=== PATIENT | female | born 1935 | race Caucasian/White ===

== ENCOUNTER 2017-10-04 12:09 | Emergency (ER) | payer MEDICARE, BC ==
[~2017-10-04] VITALS: Ht 162.6 cm; Wt 59.0 kg
--- NOTE | 2017-10-04 12:20 | NUR ---
BBRA FROM HOME C/O SKIN TEAR TO LLE S/P SLIP AND FALL. A/OX 4, BREATHING EVEN AND UNLABORED. NO SOB, NAD, NO TRAUMA. VITALS STABLE, SAFETY AND COMFORT MEAURES IN PLACE. AWAITING MD ORDERS
[2017-10-04] MEDS ORDERED: HYDROCODONE/APAP 5/325MG 1 EACH TABLET ONE (12:53)
[2017-10-04] MEDS ORDERED: ONDANSETRON 4 MG TAB.RAPDIS ONE (12:53)
[2017-10-04] MEDS ORDERED: TDAP [DIPH/PERTUSSIS/TET] 0.5 ML VIAL IM ONE ×2 (12:53→13:00)
[2017-10-04] MEDS ORDERED: HYDROCODONE/APAP 5/325MG 1 EACH TABLET PO ONE (13:00)
[2017-10-04] MEDS ORDERED: ONDANSETRON 4 MG TAB.RAPDIS SL ONE (13:00)
--- NOTE | 2017-10-04 13:05 | NUR ---
DR. ADAMS, PODIATRY AT BEDSIDE.
[2017-10-04] MEDS ORDERED: LIDOCAINE 1%-EPI 1:100,000 20 ML VIAL ONE (13:21)
[2017-10-04 14:21] VITALS: BP 124/72
--- NOTE | 2017-10-04 14:23 | NUR ---
Patient discharged to home in stable condition. Written and verbal after care instructions given. Patient verbalizes understanding of instruction.
== END 2017-10-04 14:22 | disposition home or self-care (01) ==
LOC: ER 12:10
DX: S81.812A Laceration without foreign body, left lower leg, initial encounter (principal); W01.0XXA Fall on same level from slipping, tripping and stumbling without subsequent striking against object, initial encounter; Y93.01 Activity, walking, marching and hiking; Y92.89 Other specified places as the place of occurrence of the external cause; Y99.8 Other external cause status
CPT/HCPCS: 12036; 90471; 90715; 99284; A4606; A6253; A6402; J3490; Q0162; Z7610

== ENCOUNTER 2017-10-08 09:40 | Outpatient (CLI) | payer MEDICARE, OTHER | END 2017-10-08 23:59 | disposition home health service (06) | LOC: WOU 09:40 | PROVIDERS: ATTEND Podiatrist Foot & Ankle Surgery | DX: S81.812D Laceration without foreign body, left lower leg, subsequent encounter (principal); W01.0XXD Fall on same level from slipping, tripping and stumbling without subsequent striking against object, subsequent encounter; M79.662 Pain in left lower leg; Z87.891 Personal history of nicotine dependence | CPT/HCPCS: A6402; G0463 ==

== ENCOUNTER 2017-10-22 09:50 | Outpatient (CLI) | payer MEDICARE, OTHER | END 2017-10-22 23:59 | disposition home health service (06) | LOC: WOU 09:50 | PROVIDERS: ATTEND Podiatrist Foot & Ankle Surgery | DX: S81.812D Laceration without foreign body, left lower leg, subsequent encounter (principal); W01.0XXD Fall on same level from slipping, tripping and stumbling without subsequent striking against object, subsequent encounter; Z87.891 Personal history of nicotine dependence; R60.0 Localized edema | CPT/HCPCS: A6402; G0463; Z7610 ==

== ENCOUNTER 2017-10-29 08:37 | Outpatient (CLI) | payer MEDICARE, OTHER | END 2017-10-29 23:59 | disposition home or self-care (01) | LOC: WOU 08:37 | PROVIDERS: ATTEND Podiatrist Foot & Ankle Surgery | DX: S81.802D Unspecified open wound, left lower leg, subsequent encounter (principal); R60.9 Edema, unspecified; X58.XXXD Exposure to other specified factors, subsequent encounter | CPT/HCPCS: 93970-TC; A6402; Z7610 ==

== ENCOUNTER 2017-11-05 09:46 | Outpatient (CLI) | payer MEDICARE, OTHER | END 2017-11-05 23:59 | disposition home or self-care (01) | LOC: WOU 09:46 | PROVIDERS: ATTEND Podiatrist Foot & Ankle Surgery | DX: S81.812D Laceration without foreign body, left lower leg, subsequent encounter (principal); X58.XXXD Exposure to other specified factors, subsequent encounter; M79.662 Pain in left lower leg; I73.9 Peripheral vascular disease, unspecified; R60.0 Localized edema; Z87.891 Personal history of nicotine dependence | CPT/HCPCS: A6402; G0463; Z7610 ==

== ENCOUNTER 2017-11-13 13:49 | Outpatient (CLI) | payer MEDICARE, OTHER | END 2017-11-13 23:59 | disposition home health service (06) | LOC: VASLAB 13:49 | PROVIDERS: ATTEND Surgery Vascular Surgery | DX: I73.9 Peripheral vascular disease, unspecified (principal); S81.812D Laceration without foreign body, left lower leg, subsequent encounter; X58.XXXD Exposure to other specified factors, subsequent encounter; Z91.81 History of falling | CPT/HCPCS: A6402; G0463; Z7610 ==

== ENCOUNTER 2017-11-19 09:50 | Outpatient (CLI) | payer MEDICARE, OTHER | END 2017-11-19 23:59 | disposition home health service (06) | LOC: WOU 09:50 | PROVIDERS: ATTEND Podiatrist Foot & Ankle Surgery | DX: S81.812A Laceration without foreign body, left lower leg, initial encounter (principal); W18.30XA Fall on same level, unspecified, initial encounter; Y93.89 Activity, other specified; Y92.89 Other specified places as the place of occurrence of the external cause; Y99.9 Unspecified external cause status; M79.662 Pain in left lower leg; R60.0 Localized edema; I73.9 Peripheral vascular disease, unspecified; F32.9 Major depressive disorder, single episode, unspecified; F41.9 Anxiety disorder, unspecified; Z87.891 Personal history of nicotine dependence | CPT/HCPCS: 11042; A6402; Z7610 ==

== ENCOUNTER 2017-12-03 09:50 | Outpatient (CLI) | payer MEDICARE, OTHER | END 2017-12-03 23:59 | disposition home health service (06) | LOC: WOU 09:50 | PROVIDERS: ATTEND Podiatrist Foot & Ankle Surgery | DX: Z09 Encounter for follow-up examination after completed treatment for conditions other than malignant neoplasm (principal); R60.0 Localized edema; I73.9 Peripheral vascular disease, unspecified; F41.9 Anxiety disorder, unspecified; F32.9 Major depressive disorder, single episode, unspecified; Z87.891 Personal history of nicotine dependence | CPT/HCPCS: G0463; Z7610 ==

== ENCOUNTER 2018-11-13 15:48 | Emergency (ER) | payer BC, MEDICARE ==
[~2018-11-13] VITALS: Ht 157.5 cm; Wt 55.8 kg
[2018-11-13 16:00] VITALS: BP 130/67
[2018-11-13] MEDS ORDERED: ACETAMINOPHEN 325 MG TABLET PO ONE (18:00)
[2018-11-13] MEDS ORDERED: ACETAMINOPHEN 325 MG TABLET ONE (18:04)
[2018-11-13] MEDS ORDERED: CEPHALEXIN MONOHYDRATE 500 MG CAPSULE PO ONE ×2 (18:56→19:00)
--- NOTE | 2018-11-13 19:03 | NUR ---
WOUND CARE PROVIDED. D/C HOME STABLE CONDITION.
== END 2018-11-13 19:06 | disposition home or self-care (01) ==
LOC: ER 15:54
DX: S81.812A Laceration without foreign body, left lower leg, initial encounter (principal); W23.0XXA Caught, crushed, jammed, or pinched between moving objects, initial encounter; Y93.89 Activity, other specified; Y92.89 Other specified places as the place of occurrence of the external cause; Y99.8 Other external cause status
CPT/HCPCS: 99283; A6403

== ENCOUNTER 2018-11-15 12:08 | Emergency (ER) | payer MEDICARE ==
[~2018-11-15] VITALS: Ht 157.5 cm; Wt 55.8 kg
[2018-11-15 12:15] VITALS: BP 141/82
== END 2018-11-15 12:39 | disposition home or self-care (01) ==
LOC: ER 12:16
DX: S81.812D Laceration without foreign body, left lower leg, subsequent encounter (principal); Z98.890 Other specified postprocedural states; Z90.710 Acquired absence of both cervix and uterus; Z85.42 Personal history of malignant neoplasm of other parts of uterus; W20.8XXD Other cause of strike by thrown, projected or falling object, subsequent encounter

== ENCOUNTER 2024-12-23 18:02 | Emergency (ER) | payer BC, MEDICARE ==
[~2024-12-23] VITALS: Ht 157.5 cm; Wt 47.2 kg
[2024-12-23 18:20] VITALS: BP 132/75; TEMP 98; O2SAT 94
[2024-12-23] MEDS ORDERED: TDAP [DIPH/PERTUSSIS/TET] 0.5 ML VIAL IM ONE ×2 (18:30→18:48)
[2024-12-23] MEDS ORDERED: ACETAMINOPHEN 325 MG TABLET ONE (18:47)
[2024-12-23] MEDS: ACETAMINOPHEN 325 MG TABLET PO ONE (19:00)
== END 2024-12-23 21:07 | disposition home or self-care (01) ==
LOC: ER 18:07
DX: S51.811A Laceration without foreign body of right forearm, initial encounter (principal); Z85.42 Personal history of malignant neoplasm of other parts of uterus; Z90.710 Acquired absence of both cervix and uterus; W26.8XXA Contact with other sharp object(s), not elsewhere classified, initial encounter; Y93.89 Activity, other specified; Y92.89 Other specified places as the place of occurrence of the external cause; Y99.8 Other external cause status
CPT/HCPCS: 99284; 70450; 73090; A6403; 90715

== ENCOUNTER 2025-04-23 16:21 | Emergency (ER) | payer MEDICARE, BC ==
[~2025-04-23] VITALS: Ht 157.5 cm; Wt 47.2 kg
[2025-04-23 16:50] VITALS: TEMP 97.8
[2025-04-23] MEDS: IV NS 0.9% 500 ML BAG IV ONE (17:10)
[2025-04-23] MEDS ORDERED: HYDROCODONE/APAP 5/325MG TABLET ONE (17:30)
[2025-04-23] MEDS: HYDROCODONE/APAP 5/325MG TABLET PO ONE (17:36)
[2025-04-23 17:46] LABS: PLATELET COUNT (AUTO) 239 K/uL (150-450); RED BLOOD CELL COUNT(AUTO) 4.57 MIL/uL (4.0-5.2); RED CELL DISTRIBUTION WIDTH 13.6 % (11.5-15.0); WHITE BLOOD COUNT (AUTO) 5.0 K/uL (4.3-11.0)
[2025-04-23 17:59] LABS: ASPARTATE AMINOTRANSFERASE 18 U/L (15-37); CALCIUM, SERUM 9.9 mg/dL (8.5-10.1); CREATININE 0.7 mg/dL (0.6-1.3); SODIUM SERUM 138 mmol/L (136-145); TOTAL PROTEIN, SERUM 6.7 g/dL (6.4-8.2); UREA NITROGEN, BLOOD 21 mg/dL (7-18)
[2025-04-23 18:02] LABS: INR 0.97 (0.91-1.10)
[2025-04-23] MEDS ORDERED: HYDR-4303 PO (18:44)
[2025-04-23 19:27] VITALS: BP 145/80; O2SAT 97
== END 2025-04-23 19:25 | disposition home or self-care (01) ==
LOC: ER 17:07
DX: R07.89 Other chest pain (principal); I25.2 Old myocardial infarction; M19.011 Primary osteoarthritis, right shoulder; M47.816 Spondylosis without myelopathy or radiculopathy, lumbar region; Z85.42 Personal history of malignant neoplasm of other parts of uterus; Z90.710 Acquired absence of both cervix and uterus
CPT/HCPCS: 99285; 72131; 71045; 93005 ×2; 73030; 85025; 80048; 80076; 85378; 36415; 84484; 85730; J7040